=== PATIENT | male | born 1965 | race Caucasian/White ===

== ENCOUNTER 2017-09-21 05:42 | Day surgery (SDC) | payer OTHER ==
[2017-09-21] MEDS ORDERED: DIPRIVAN 200 MG/20 ML IV ONE (05:43)
[2017-09-21] MEDS ORDERED: Ketamine HCl 50 MG/ML IV ONE (05:43)
[2017-09-21] MEDS ORDERED: Lactated Ringers 1,000 ML IV ONE (06:05)
[2017-09-21] MEDS ORDERED: Lactated Ringers 1,000 ML IV SCH (06:30)
[2017-09-21 08:14] VITALS: O2SAT 93
--- NOTE | 2017-09-21 08:19 | OP ---
SURGERY DATE/TIME: 09/21/2017711 PREOPERATIVE DIAGNOSIS: Screening colonoscopy. POSTOPERATIVE DIAGNOSIS: Colon polyps x2. PROCEDURE: Screening colonoscopy. SURGEON: Ramses Lombardi M.D. ANESTHESIA: MAC by Jayjay Lerner CRNA. ESTIMATED BLOOD LOSS: Minimal. SPECIMENS: Two hot forceps polypectomies. DESCRIPTION OF PROCEDURE: After informed written consent was obtained, the patient was taken to the endoscopy suite. He underwent monitored anesthesia and a digital rectal exam showed normal sphincter tone and no internal lesions. The scope was inserted into the rectum and sequentially the entire colonic mucosa was traversed. The level of cecum was reached and verified with direct visualization of ileocecal valve. On the valve in the pericecal area there was a sessile polyp which was grasped with forceps and cauterized and then removed. There was a small amount of remaining polyp tissue after removal therefore a second piece was removed with forceps. The entire lesion was removed and the base was hemostatic. Upon withdrawal the entire colonic mucosa was closely inspected. In the proximal sigmoid colon there was another small sessile polyp which was also removed in its entirety with hot forceps. Good hemostasis and good removal were achieved. Upon withdrawal no other obvious mucosal abnormalities were identified. Prior to withdrawal retroflexion was performed and showed minimal internal hemorrhoids. The scope was removed and the patient was transferred to the recovery room in excellent condition.
[2017-09-21 09:04] VITALS: BP 139/85; PULSE 86
== END 2017-09-21 09:23 | disposition home or self-care (01) ==
LOC: SDC 05:42
PROVIDERS: ATTEND Family Medicine
PROC: 0DBH8ZX Excision of Cecum, Via Natural or Artificial Opening Endoscopic, Diagnostic (ICD-10-PCS; principal; 2017-09-21)
PROC: 0DBN8ZX Excision of Sigmoid Colon, Via Natural or Artificial Opening Endoscopic, Diagnostic (ICD-10-PCS; 2017-09-21)
DX: Z12.11 Encounter for screening for malignant neoplasm of colon (principal); K63.5 Polyp of colon; I10 Essential (primary) hypertension; E11.9 Type 2 diabetes mellitus without complications
CPT/HCPCS: 00812; 88305; J2704

== ENCOUNTER 2019-01-21 22:59 | Emergency (ER) | payer OTHER ==
--- NOTE | 2019-01-21 23:46 | ERPHSYRPT ---
- History of Present Illness Time Seen by Provider: 01/21/19 23:42 Source: patient Exam Limitations: no limitations Patient Subjective Stated Complaint: pt sttes he was bit twice on the forehead today by a deerfly. states he used topical diphenhydramine on bites. states after taking his trazadone 100mg at bedtime, he began to have swelling around his eyes and itching Triage Nursing Assessment: pt alert and oriented, answers questions approp. pt ambualtory with steady gait noted. respirations nonlabored with lungs cta. mild swelling noted under eyes. peripheral pusles wnl. Physician History: 53-year-old white male with history of diabetes type 2, high blood pressure, arthritis, anxiety, bipolar depression. Patient arrives with complaint of swelling inferior to his eyes bilaterally he states he's had some paresthesias to his mouth. Patient states he was bitten in the 4 head by a deer fly some topical Benadryl to his for head and he took his trazodone at about 8:00 at about 8:30 he noticed swelling inferior to his eyes. He arrives because he is afraid that he is going to have swelling in his face and have problems breathing secondary to this. Currently the patient appears to be stable he has some mild edema inferior to his eyes. Past medical history includes diabetes type 2, high blood pressure, arthritis, anxiety, bipolar depression. Timing/Duration: today Severity: moderate Modifying Factors: Improves With: nothing Associated Symptoms: other (swelling inferior to his eyes paresthesias to his miles), No nausea, No vomiting, No abdominal pain, No shortness of breath, No heartburn, No diaphoresis, No cough, No chills, No chest pain, No fever, No headaches, No loss of appetite, No malaise, No rash, No syncope, No seizure, No weakness Allergies/Adverse Reactions: No Known Drug Allergies Allergy (Verified 01/21/19 23:21) Home Medications: ARIPiprazole [Abilify] 20 mg PO DAILY 09/14/17 [History] Amlodipine Besylate 10 mg [Norvasc 10 MG] 10 mg PO DAILY 09/14/17 [History] Buspirone HCl 5 mg [Buspar 5 mg] 15 mg PO BID 09/14/17 [History] Insulin Lispro Protamin/Lispro [Humalog Mix 75-25 Kwikpen] 15 unit SQ BID [History] Insulin Lispro [Humalog] 10 unit SQ TID 09/14/17 [History] Liraglutide [Victoza 2-Pierre] 1.8 mg SQ DAILY 09/14/17 [History] Lisinopril/Hctz 20/12.5 mg [Lisinopril/ Hctz 20/12.5] 20 mg PO DAILY 09/14/17 [ History] Pravastatin Sodium 40 mg PO DAILY 09/14/17 [History] Tramadol HCl 50 mg [Ultram 50 mg] 100 mg PO TID 09/14/17 [History] Hx Tetanus, Diphtheria Vaccination/Date Given: Yes Hx Influenza Vaccination/Date Given: Yes Hx Pneumococcal Vaccination/Date Given: No Immunizations Up to Date: Yes - Review of Systems Constitutional: No Fever, No Chills Eyes: No Symptoms Ears, Nose, & Throat: No Symptoms, Other (swelling inferior to his eyes on his face) Respiratory: No Cough, No Dyspnea Cardiac: No Chest Pain, No Edema, No Syncope Abdominal/Gastrointestinal: No Abdominal Pain, No Nausea, No Vomiting, No Diarrhea Genitourinary Symptoms: No Dysuria Musculoskeletal: Other (paresthesia to his mouth) Skin: No Rash Neurological: Other (edema inferior to his eyes), No Dizziness, No Focal Weakness, No Sensory Changes Psychological: No Symptoms Endocrine: No Symptoms All Other Systems: Reviewed and Negative - Past Medical History Pertinent Past Medical History: Yes Neurological History: No Pertinent History ENT History: No Pertinent History Cardiac History: Hypertension Respiratory History: No Pertinent History Endocrine Medical History: Diabetes Type II Musculoskeletal History: Arthritis GI Medical History: No Pertinent History History: No Pertinent History Psycho-Social History: Anxiety, Bipolar, Depression Male Reproductive Disorders: No Pertinent History - Past Surgical History Past Surgical History: No Neuro Surgical History: No Pertinent History Cardiac: No Pertinent History Respiratory: No Pertinent History Gastrointestinal: No Pertinent History Genitourinary: No Pertinent History Musculoskeletal: No Pertinent History Male Surgical History: No Pertinent History Other Surgical History: confirms no hx of surgery - Social History Smoking Status: Never smoker Exposure to second hand smoke: No Drug Use: none Patient Lives Alone: No - Nursing Vital Signs Nursing Vital Signs: Initial Vital Signs Temperature 98.5 F 01/21/19 23:09 Pulse Rate 100 H 01/21/19 23:09 Respiratory Rate 16 01/21/19 23:09 Blood Pressure 120/80 01/21/19 23:09 O2 Sat by Pulse Oximetry 94 L 01/21/19 23:09 Pain Scale Pain Intensity 0 - Physical Exam General Appearance: no apparent distress, alert Eye Exam: PERRL/EOMI, eyes nml inspection, other (mild edema inferior to his eyes( infraorbital area)) Ears, Nose, Throat Exam: normal ENT inspection, TMs normal, pharynx normal, moist mucous membranes Neck Exam: normal inspection, non-tender, supple, full range of motion Respiratory Exam: normal breath sounds, lungs clear, No respiratory distress Cardiovascular Exam: regular rate/rhythm, normal heart sounds, normal peripheral pulses, capillary refill <2 sec Gastrointestinal/Abdomen Exam: soft, normal bowel sounds, No tenderness, No mass Back Exam: normal inspection, normal range of motion, No CVA tenderness, No vertebral tenderness Extremity Exam: normal inspection, normal range of motion, pelvis stable Neurologic Exam: alert, oriented x 3, cooperative, wallpaperer II-XII nml as tested, normal mood/affect, nml cerebellar function, nml station & gait, sensation nml, No motor deficits Skin Exam: normal color, warm, dry, No rash Lymphatic Exam: No adenopathy SpO2 Interpretation: normal (95%) SpO2: 95 - Course Nursing assessment & vital signs reviewed: Yes EKG Interpreted by Me: RATE (EKG: Sinus a 70, all axis, no acute ST or T wave changes, normal EKG) Ordered Tests: Active Orders 24 hr Category Date Time Status EKG-ER Only STAT Care 01/21/19 23:43 Active IV Insertion STAT Care 01/21/19 23:43 Active Medication Summary Discontinued Medications Generic Name Dose Route Start Last Admin Trade Name Ulicesq PRN Reason Stop Dose Admin Diphenhydramine HCl 50 mg 01/22/19 00:46 01/22/19 00:56 Benadryl 25 Mg Capsule PO 01/22/19 00:47 50 mg STAT ONE Administration Diphenhydramine HCl Confirm 01/22/19 00:54 Benadryl 25 Mg Capsule Administered 01/22/19 00:55 Dose 50 mg .ROUTE .STK-MED ONE Epinephrine HCl 0.3 mg 01/21/19 23:54 01/22/19 00:13 Epinephrine 1mg/Ml Amp IM 01/21/19 23:55 0.3 mg STAT ONE Administration Epinephrine HCl Confirm 01/22/19 00:00 Epinephrine 1mg/Ml Amp Administered 01/22/19 00:01 Dose 1 mg .ROUTE .STK-MED ONE - Progress Progress: improved Progress Note: 01/22/19 00:47 Patient improved after epinephrine 0.3 mg IM. The infraorbital edema is resolving. Patient without severe shortness of breath does not appear to be in acute distress. Will give patient Benadryl 50 mg orally plan home Benadryl 50 mg orally every 6 hours for 2-3 days, hold for somnolence. Follow up with family doctor or return if problems. - Departure Departure Disposition: Home Clinical Impression: Insect bite of face Qualifiers: Encounter type: initial encounter Qualified Code(s): S00.86XA - Insect bite ( nonvenomous) of other part of head, initial encounter Allergic reaction Qualifiers: Encounter type: initial encounter Qualified Code(s): T78.40XA - Allergy, unspecified, initial encounter Condition: Fair Critical Care Time: No Referrals: PEDRO SANABRIA [Primary Care Provider] - Instructions: Adverse Drug Reactions, Adult (DC) Additional Instructions: Return home. Benadryl 50 mg orally every 6 hours for 2-3 days (hold for somnolence).. Followup with your family Dr. or return if problems. Plenty of fluids. Return for acute distress or for severe symptoms.
[2019-01-21] MEDS ORDERED: EPINEPHRINE 1MG/ML AMP IM ONE (23:54)
[2019-01-22] MEDS ORDERED: EPINEPHRINE 1MG/ML AMP ONE
[2019-01-22] MEDS ORDERED: BENADRYL 25 MG CAPSULE PO ONE (00:46)
[2019-01-22] MEDS ORDERED: BENADRYL 25 MG CAPSULE ONE (00:54)
[2019-01-22 01:07] VITALS: BP 107/71; PULSE 101
[2019-01-22 02:09] VITALS: O2SAT 95
== END 2019-01-22 01:26 | disposition home or self-care (01) ==
LOC: ED 22:59
DX: R22.0 Localized swelling, mass and lump, head (principal); S00.86XA Insect bite (nonvenomous) of other part of head, initial encounter; T78.40XA Allergy, unspecified, initial encounter
CPT/HCPCS: 36000; 93005; 96372; 99284; J0171; A9270-GY

== ENCOUNTER 2020-10-25 23:31 | Emergency (ER) | payer OTHER ==
--- NOTE | 2020-10-25 23:53 | ERPHSYRPT ---
- History of Present Illness Time Seen by Provider: 10/25/20 23:53 Source: patient Exam Limitations: no limitations Physician History: This is a 55-year-old diabetic white male with history of hypertension and presents with sudden onset of right foot plantar surface pain that occurred approximately 7-7 30 p.m. evening prior to this evaluation. In evaluating his foot he felt that there was a visible foreign body present and he did attempt to open up the foot with a sharp object to try to remove what he felt was a foreign body. He does not recall specifically him stepping on something but he was walking around his basement without socks or shoes on Method of Injury: unknown Occurred: other (Evening prior to this evaluation) Quality: sharpness Severity of Pain-Max: mild Severity of Pain-Current: mild Lower Extremities Pain: foot: right (Plantar surface) Modifying Factors: Improves With: other (Bearing weight hurts the site) Allergies/Adverse Reactions: ciprofloxacin [From Cipro] Allergy (Severe, Verified 10/25/20 23:38) hives Home Medications: Amlodipine Besylate 10 mg [Norvasc 10 MG] 10 mg PO DAILY 09/14/17 [History] Liraglutide [Victoza 2-Pierre] 1.8 mg SQ DAILY 09/14/17 [History] Lisinopril/Hctz 20/12.5 mg [Lisinopril/ Hctz 20/12.5] 20 mg PO DAILY 09/14/17 [History] Atorvastatin Calcium [Lipitor 40Mg] 1 tab PO DAILY 10/25/20 [History] Insulin Glargine,Hum.rec.anlog [Basaglar Kwikpen U-100] 30 units SQ BID 10/25/20 [History] Lamotrigine [Lamictal] 1 tab PO BID 10/25/20 [History] Hx Tetanus, Diphtheria Vaccination/Date Given: Yes Hx Influenza Vaccination/Date Given: Yes Hx Pneumococcal Vaccination/Date Given: No Travel Risk - International Travel Have you traveled outside of the country in past 3 weeks: No - Coronavirus Screening Are you exhibiting any of the following symptoms?: No Close contact with a COVID-19 positive Pt in past 14-21 Days: No - Review of Systems Constitutional: No Symptoms Eyes: No Symptoms Ears, Nose, & Throat: No Symptoms Respiratory: No Symptoms Cardiac: No Symptoms Abdominal/Gastrointestinal: No Symptoms Genitourinary Symptoms: No Symptoms Musculoskeletal: No Symptoms Skin: Other (Sharp pain right foot plantar surface) Neurological: No Symptoms Psychological: No Symptoms Endocrine: No Symptoms Hematologic/Lymphatic: No Symptoms Immunological/Allergic: No Symptoms All Other Systems: Reviewed and Negative - Past Medical History Pertinent Past Medical History: Yes Neurological History: No Pertinent History ENT History: No Pertinent History Cardiac History: Hypertension Respiratory History: No Pertinent History Endocrine Medical History: Diabetes Type II Musculoskeletal History: Fractures GI Medical History: No Pertinent History History: No Pertinent History Psycho-Social History: Anxiety, Bipolar, Depression Male Reproductive Disorders: No Pertinent History Other Medical History: L arm fracture (childhood). This is Gerardo's first surgery. - Past Surgical History Past Surgical History: No Neuro Surgical History: No Pertinent History Cardiac: No Pertinent History Respiratory: No Pertinent History Gastrointestinal: No Pertinent History Genitourinary: No Pertinent History Musculoskeletal: No Pertinent History Male Surgical History: No Pertinent History Other Surgical History: confirms no hx of surgery - Social History Smoking Status: Never smoker Exposure to second hand smoke: No Drug Use: none Patient Lives Alone: No - Nursing Vital Signs Nursing Vital Signs: Initial Vital Signs Temperature 98.7 F 10/25/20 23:31 Pulse Rate 96 H 10/25/20 23:31 Respiratory Rate 16 10/25/20 23:31 Blood Pressure 148/94 10/25/20 23:31 O2 Sat by Pulse Oximetry 98 10/25/20 23:31 Pain Scale Pain Intensity 6 - Physical Exam General Appearance: no apparent distress, alert, anxiety Eyes, Ears, Nose, Throat Exam: normal ENT inspection, moist mucous membranes Neck Exam: normal inspection, non-tender, supple, full range of motion Cardiovascular/Respiratory Exam: chest non-tender, no respiratory distress Gastrointestinal/Abdominal Exam: non-tender Back Exam: normal inspection, normal range of motion, No CVA tenderness, No vertebral tenderness Hips Exam: bilateral: non-tender, normal inspection, normal range of motion, no evidence of injury Legs Exam: bilateral leg: non-tender, normal inspection, normal range of motion, no evidence of injury Knees Exam: bilateral knee: non-tender, normal inspection, normal range of motion, no evidence of injury Ankle Exam: bilateral ankle: non-tender, normal inspection, normal range of motion, no evidence of injury Foot Exam: right foot: normal range of motion, soft tissue tenderness (Tenderness in plantar surface of right foot. There were small areas of scratches/compromise of this skin that apparently tweezers were used to try to remove what ever "foreign body he thought was there.), left foot: non-tender, normal inspection, no evidence of injury Neuro/Tendon Exam: normal sensation, normal motor functions, normal tendon functions, responds to pain, no evidence tendon injury Mental Status Exam: alert, oriented x 3, cooperative Skin Exam: normal color, warm, dry, other (See above) SpO2 Interpretation: normal O2 Delivery: Room Air - Course Nursing assessment & vital signs reviewed: Yes Ordered Tests: Active Orders 24 hr Category Date Time Status FOOT (MINIMUM 3 VIEWS) Stat Exams 10/26/20 00:12 Taken - Progress Progress: unchanged, pain not gone completely Progress Note: 10/26/20 01:39 X-ray of right foot reveals no acute fracture or dislocation of any bony elements. There is no evidence of foreign body on my evaluation of the x-rays Counseled pt/family regarding: diagnosis, need for follow-up, rad results - Departure Departure Disposition: Home Clinical Impression: Right foot pain Condition: Stable Critical Care Time: No Referrals: PEDRO BENJAMIN [Primary Care Provider] - Additional Instructions: Do not scratch or cut your feet. Do not apply lotions ointments or creams to site. Soak feet in warm soapy water or warm Epson salt water twice a day. Follow-up with the ring packer, Dr. Lance, if symptoms do not improve. May return to the emergency department if your symptoms worsen.
[2020-10-26 00:46] VITALS: O2SAT 97
[2020-10-26 01:38] VITALS: BP 126/84; PULSE 99
--- NOTE | 2020-10-26 08:15 | XRAY ---
Indication: 1st/2nd foreign body. Comparison: June 11, 2020. 3 nonweightbearing views right foot negative for radiopaque foreign body. Stable cuboid/navicular accessory ossicles, tiny heel spurs, and small distal tibial shaft bony exostosis. No new/acute findings.
== END 2020-10-26 01:45 | disposition home or self-care (01) ==
LOC: ED 23:31
DX: M79.671 Pain in right foot (principal); I10 Essential (primary) hypertension; Z79.899 Other long term (current) drug therapy; E11.9 Type 2 diabetes mellitus without complications
CPT/HCPCS: 73630; 99283

== ENCOUNTER 2024-09-03 05:30 | Day surgery (SDC) | payer OTHER ==
[2024-09-03 06:20] VITALS: RESP 18
[2024-09-03 07:33] LABS: ANION GAP 11.3 MEQ/L (5-15); Calcium 9.8 mg/dL (8.4-10.2); Creatinine 1 0.97 mg/dL (0.66-1.25); EST GLOMERULAR FILTRATION RATE 89.9 ML/MIN; Potassium 4.5 mmol/L (3.5-5.1)
[2024-09-03] MEDS ORDERED: propofoL IV ONE ×2 (07:55)
[2024-09-03 09:04] VITALS: TEMP 97.9; O2SAT 94
[2024-09-03 09:10] VITALS: BP 131/88; PULSE 83
--- NOTE | 2024-09-04 10:28 | OP ---
SURGERY DATE/TIME: 09/03/2024 [id number] PREOPERATIVE DIAGNOSIS: Epigastric pain and screening colon exam. POSTOPERATIVE DIAGNOSES: Moderate gastritis, mild duodenitis, and small sigmoid polyp. PROCEDURE: Esophagogastroduodenoscopy with cold forceps biopsy and colonoscopy with cold forceps biopsy. SURGEON: Abdi Fox MD ANESTHESIA: Medications were given by the anesthesia department. INDICATIONS: The patient is a 59-year-old white male patient presenting now for complaints of abdominal pain and bloating. He reports that he previously had an evaluation that showed him to be positive for H pylori, but the most recent testing has been negative. It is also noted on the patient's medication list that he is on meloxicam and Ozempic. The patient was described risks of the procedure including risk of perforation, phlebitis, untoward reaction to medication, bleeding, and missed lesions. The patient verbalized his understanding and desire to have the procedure performed. DESCRIPTION OF PROCEDURE AND FINDINGS: The patient was given medication by the anesthesia department. He had continuous pulse oximetry, ECG monitoring, and intermittent blood pressure monitoring during the examination. He was placed in the left lateral decubitus position. A bite block was placed, and a flexible Olympus gastroscope was used to intubate the oropharynx. The scope was easily introduced into the esophagus, which was normal throughout its length. The stomach was entered, where normal gastric rugal folds were seen and these distended nicely with insufflation of air. There were noted to be mild to moderate areas of erythema. No erosions or ulcerations were noted. The scope was passed along the greater curvature of the stomach to the antrum. The pylorus was encountered and intubated. The duodenum was inspected and was found to have mild inflammation. The scope was removed to the stomach. A retroflexed view was obtained of the lesser curvature, fundus, and cardia regions of the stomach, and these appeared to be essentially normal. The scope was then redirected towards the gastric antrum where biopsies were obtained by cold forceps technique to determine the presence of Helicobacter pylori-type organisms. The scope was then removed from the patient. Next, a digital rectal examination was performed and revealed normal anal sphincter tone, no masses, and a normal prostate. The flexible Olympus videocolonoscope was used to intubate the rectum. A view of the colon was developed sequentially to the cecum. Upon insertion and withdrawal was noted approximately a 1.1 cm polyp in the sigmoid colon distally, and this was biopsied multiple times using the cold forceps biopsy instrument, destroying the lesion. No other mucosal lesions being encountered. The scope was removed. The patient tolerated the procedure well and was sent back to outpatient recovery in good condition. The prep was noted to be fair to good.
== END 2024-09-03 09:30 | disposition home or self-care (01) ==
LOC: SDC 05:30
PROVIDERS: ATTEND Family Medicine
DX: Z12.11 Encounter for screening for malignant neoplasm of colon (principal); R10.13 Epigastric pain; K29.70 Gastritis, unspecified, without bleeding; K29.80 Duodenitis without bleeding; E11.9 Type 2 diabetes mellitus without complications; D12.5 Benign neoplasm of sigmoid colon
CPT/HCPCS: 36415; 80048; 82947; 93005; J2704